=== PATIENT | female | born 1980 | race Caucasian/White ===

== ENCOUNTER 2023-10-16 08:21 | Outpatient (CLI) | payer BC | END 2023-10-16 08:22 | disposition home or self-care (01) | LOC: CSHULT 08:21 | PROVIDERS: ATTEND Obstetrics & Gynecology | DX: R92.8 Other abnormal and inconclusive findings on diagnostic imaging of breast (principal); N64.89 Other specified disorders of breast | CPT/HCPCS: G0279 ==

== ENCOUNTER 2024-05-02 08:39 | Outpatient (CLI) | payer BC | END 2024-05-02 08:40 | disposition home or self-care (01) | LOC: CSHMAMMO 08:39 | PROVIDERS: ATTEND Obstetrics & Gynecology | DX: R92.8 Other abnormal and inconclusive findings on diagnostic imaging of breast (principal) | CPT/HCPCS: G0279 ==